=== PATIENT | male | born 1980 | race Caucasian/White ===

== ENCOUNTER 2020-02-26 13:04 | Emergency (ER) | payer OTHER, MEDICARE ==
[~2020-02-26] VITALS: Ht 185.4 cm; Wt 117.6 kg
[2020-02-26 13:12] VITALS: BP 140/81
[2020-02-26] MEDS ORDERED: SILV20CR14 TP (13:25)
[2020-02-26] MEDS ORDERED: IBUP-1007 PO (13:25)
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
[2020-02-26] MEDS ORDERED: silver sulfADIAZINE 1% CREAM 25GM TUBE. TP ONE (13:30)
[2020-02-26] MEDS ORDERED: KETOROLAC 30 MG/ML VIAL. IM ONE (13:30)
== END 2020-02-26 13:38 | disposition home or self-care (01) ==
LOC: EDBD 13:04 → ER 13:04
DX: T22.212A Burn of second degree of left forearm, initial encounter (principal); T31.0 Burns involving less than 10% of body surface; M79.632 Pain in left forearm; F41.9 Anxiety disorder, unspecified; F32.9 Major depressive disorder, single episode, unspecified; F17.200 Nicotine dependence, unspecified, uncomplicated; Z90.49 Acquired absence of other specified parts of digestive tract; Z88.1 Allergy status to other antibiotic agents; Z88.8 Allergy status to other drugs, medicaments and biological substances; X08.8XXA Exposure to other specified smoke, fire and flames, initial encounter; Y93.89 Activity, other specified; Y92.89 Other specified places as the place of occurrence of the external cause; Y99.8 Other external cause status
CPT/HCPCS: 96372; 99283; J1885